=== PATIENT | female | born 1990 | race Caucasian/White ===

== ENCOUNTER 2019-05-22 10:25 | Emergency (ER) | payer OTHER ==
[~2019-05-22] VITALS: Ht 165.1 cm; Wt 91.0 kg
[~2019-05-22 10:25] MED LIST: PREN1TAB13 PO
[2019-05-22 10:27] VITALS: BP 107/53; PULSE 85; RESP 24; Ht 165.1 cm; Wt 91.0 kg
[2019-05-22] MEDS ORDERED: CEPH-443 PO (10:53)
[2019-05-22] MEDS ORDERED: BACITUD TOP (10:53)
[2019-05-22] MEDS ORDERED: DIPHTH/TET/ACEL PERTUSS (ADULT) 0.5 ML VIAL IM* ONE (11:00)
[2019-05-22] MEDS ORDERED: BACITRACIN 0.9 GM OINT TOP ONE (11:00)
--- NOTE | 2019-05-22 11:22 | ERD ---
ER Documentation Chief Complaint Chief Complaint nasal laceration, facial swelling due to fall 2 days ago HPI 28 female presents with complaint of laceration to her nose and upper lip which was incurred 2 days ago due to a fall. Patient states that she was walking and tripped and hit her face on the floor. She is not sure if she is up-to-date on her tetanus. Patient denies any fevers, chills, headache, head trauma. ROS All systems reviewed and are negative except as per history of present illness. Medications Home Meds Active Scripts Cephalexin* (Keflex*) 500 Mg Capsule, 500 MG PO QID for 7 Days, CAP Prov:SADI LEONE 05/22/19 Bacitracin* (Bacitracin Oint (UD)*) 1 Applic Oint, 1 APPLIC TOP BID, #10 PKT APPLY TO Prov:SADI LEONE 05/22/19 Reported Medications Vit-Iron Fumarate-FA ( Vitamins Tablet) 1 Tab Tablet, 1 TAB PO DAILY 04/13/14 Allergies Allergies: Coded Allergies: No Known Allergy (Unverified , 08/28/12) PMhx/Soc Medical and Surgical Hx: pt denies Medical Hx, pt denies Surgical Hx History of Surgery: No Anesthesia Reaction: No Hx Neurological Disorder: No Hx Respiratory Disorders: No Hx Cardiac Disorders: No Hx Psychiatric Problems: No Hx Miscellaneous Medical Probl: No Hx Alcohol Use: No Hx Substance Use: Yes (MARIJUANA) Hx Tobacco Use: No Smoking Status: Never smoker FmHx Family History: No diabetes, No coronary disease, No other Physical Exam Vitals Vital Signs Date Temp Pulse Resp B/P (MAP) Pulse Ox O2 O2 Flow FiO2 Time Delivery Rate 05/22/19 98.0 85 24 107/53 99 10:27 (71) Physical Exam Const: No acute distress Head: Atraumatic Eyes: Normal Conjunctiva ENT: Normal External Ears, Nose and Mouth. Neck: Full range of motion. No meningismus. Resp: Clear to auscultation bilaterally Cardio: Regular rate and rhythm, no murmurs Abd: Soft, non tender, non distended. Normal bowel sounds Skin: Approximately quarter centimeter laceration noted to the lateral aspect of the left nares. There are no septal hematomas noted. In addition there is a approximately 1 cm laceration noted to the left lateral aspect of maxillary area above her lip. Partial-thickness with no communication to the inside of her mouth. All teeth are intact. There is no bleeding or signs of infection. Back: No midline or flank tenderness Ext: No cyanosis, or edema Neur: Awake and alert Psych: Normal Mood and Affect Neuro: M/S: Alert and oriented Face: EOMI, face and pharynx with normal sensation and function Motor: Normal strength throughout Sensation: Normal sensation throughout Speech: Normal Cerebel: Normal coordination Normal gait Normal finger to nose DTR: 2+ and symmetric upper/lower extremities Results 24 hrs Current Medications Medications Dose Sig/Arlene Start Time Status Last (Trade) Ordered Route PRN Stop Time Admin Dose Reason Admin Bacitracin 1 applic ONCE ONCE 05/22/19 DC 05/22/19 (Bacitracin TOP 11:00 10:51 Oint (Ud)) 05/22/19 11:01 Diphtheria/ 0.5 ml ONCE ONCE 05/22/19 DC 05/22/19 Tetanus/Acell IM* 11:00 10:52 Pertussis 05/22/19 11:01 (Adacel) Procedures/MDM MDM: Patient was advised that given the length of time since injury which is at this point 2 days we would need to let the wound site heal through secondary intention. Patient was given bacitracin and wound was cleansed and clean dressing applied in the ER. Patient was discharged with Rx for Keflex and Bactrim and advised to follow-up in 2 days for wound check. This time I have low suspicion for acute space infection, cellulitis, abscess, fracture, CVA, or any other emergent condition. At this time, patient is stable for discharge and outpatient management. I have instructed the patient to follow-up with his/her primary care physician in 1-2 days. I have discussed with the patient the possibility of needing to see a specialist for further workup and imaging studies if symptoms persist. I have instructed the patient to promptly return to the ER for any new or worsening symptoms including but not limited to increased pain, fever, nausea, vomiting, weakness or LOC. The patient and/or family expressed understanding of and agreement with this plan. All questions were answered. Home care instructions were provided. DISCLAIMER: Inadvertent spelling and grammatical errors are likely due to EHR/dictation software use and do not reflect on the overall quality of patient care. Also, please note that the electronic time recorded on this note does not necessarily reflect the actual time of the patient encounter. Departure Diagnosis: Primary Impression: Laceration Condition: Stable Patient Instructions: Laceration, All, Wound Care Referrals: [facility] YOU HAVE RECEIVED A MEDICAL SCREENING EXAM AND THE RESULTS INDICATE THAT YOU DO NOT HAVE A CONDITION THAT REQUIRES URGENT TREATMENT IN THE EMERGENCY DEPARTMENT. FURTHER EVALUATION AND TREATMENT OF YOUR CONDITION CAN WAIT UNTIL YOU ARE SEEN IN YOUR DOCTORS OFFICE WITHIN THE NEXT 1-2 DAYS. IT IS YOUR RESPONSIBILITY TO MAKE AN APPOINTMENT FOR FOLOW-UP CARE. IF YOU HAVE A PRIMARY DOCTOR --you should call your primary doctor and schedule an appointment IF YOU DO NOT HAVE A PRIMARY DOCTOR YOU CAN CALL OUR PHYSICIAN REFERRAL HOTLINE AT IF YOU CAN NOT AFFORD TO SEE A PHYSICIAN YOU CAN CHOSE FROM THE FOLLOWING [facility] [address] [facility] [facility] [address] [facility] [facility] [address] [facility] [address] [facility] [address] [address] [address] [facility] [address] Additional Instructions: Return to this facility in 2 DAYS for a follow-up exam.Return sooner if your condition worsens. SADI LEONE May 22, 2019 11:22
== END 2019-05-22 11:35 | disposition left against medical advice (07) ==
LOC: FTE 10:25
DX: S01.21XA Laceration without foreign body of nose, initial encounter (principal); S01.511A Laceration without foreign body of lip, initial encounter; W01.198A Fall on same level from slipping, tripping and stumbling with subsequent striking against other object, initial encounter; Y92.9 Unspecified place or not applicable; Z23 Encounter for immunization
CPT/HCPCS: 90471; 90715; Z7502; Z7610